=== PATIENT | male | born 1960 | race Caucasian/White ===

== ENCOUNTER 2024-10-17 10:58 | Outpatient (AMB) | payer BC, SELFPAY ==
--- NOTE | 2024-10-17 11:04 | PD.ORTHCLVIS ---
Vital signs 10/17/24 11:06 Height 1.85 m Height Method Stated Weight 132.931 kg Weight Measurement Method Standing Scale BMI 38.6 BP 107/75 Blood Pressure Source Automatic Cuff Blood Pressure Location Right Upper Arm Position Sitting Respiration 19 Pulse 68 Pulse Source Monitor Temp 96.8 F Temp Source Temporal Artery Scan Pulse Oximetry (%) 95 Oxygen Delivery Method Room Air Med/Allergies Allergies & Medications Allergies Fish Containing Products Allergy (Severe, Verified 10/17/24 11:07) sob Penicillins Allergy (Intermediate, Verified 10/17/24 11:07) RASH Medication Reconciliation allopurinol 300 mg tablet 300 mg PO QDAY 03/19/24 [History Confirmed 10/17/24] atorvastatin 10 mg tablet 10 mg PO QDAY 03/19/24 [History Confirmed 10/17/24] benazepril 20 mg-hydrochlorothiazide 12.5 mg tablet 1 tab PO QDAY 03/19/24 [History Confirmed 10/17/24] diclofenac potassium 50 mg tablet 50 mg PO TID PRN Pain 03/19/24 [History Confirmed 10/17/24] metoprolol succinate 50 mg tablet,extended release 24 hr 50 mg PO QDAY 03/19/24 [History Confirmed 10/17/24] Exam Exam Patient is in no acute distress and is cooperative with the examination today. Breathing is nonlabored. In no respiratory distress. Patient has no paraspinal tenderness. Spinal deformity [cannot] be appreciated. The gait of the patient is [nonantalgic] Bilateral extremities were evaluated and demonstrates sensation intact to light touch. Palpable pedal pulses are present. No significant edema is present. Bilateral knees were examined and the patient has full strength and range of motion.. The right hip was examined. Patient was able to flex to 90 degrees, adduct to 30 degrees, abduct to 40 degrees, internally rotate to 20 degrees, and externally rotate to 20 degrees. Patient has a negative logroll. Stinchfield is negative. The patient is nontender diffusely to touch. The left hip was examined. Patient was able to flex to 70 degrees, adduct to 15 degrees, abduct to 20 degrees, internally rotate to 5 degrees, and externally rotate to 10 degrees. Patient has a positive logroll. X-rays demonstrate significant left hip arthritis with complete obliteration of the left hip joint space. Assessment and Plan Problem List (1) Arthritis of left hip: Status: Acute Plan: Patient is a 63-year-old male with left hip arthritis of significant severity. He is morbidly obese and has gained 50 pounds recently. His weight is all centrally located and it actually is big enough where he will not sit on the table in a lateral decubitus position. I would not recommend going anterior as he has quite a bit of a belly. We discussed with him that I would would need him to lose some weight so that he can sit on the table. Office Procedures GNS Level of Care Nursing/Assessment Patient Status: Established Patient Nursing Assessment/Reassesment: Medication Reconciliation, Update PMH in EMR and Vital Signs Coordination of Care: Complex Care and Chronic Disease 1-5, Education Complex Pt/Fam, Consent,records obtained, informed consent, Results/Orders obtained and Staff clarify orders Established Patient Charge Established Patient Point Assignment: 95 Established Patient Point Charge: Level 3 (80-115) MA Intake Visit Data Collection New Patient or Established: Established Patient (seen at [facility] within 3 years) Reason for Visit:: F/U HIP INJECTION Seen by Clinical Staff ONLY (RN/MA): No Verbal consent obtained for Telemed visit?: No [employer]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 PCP or OBGYN visit in last 3 months: Yes Hx Now: No Do You Feel Safe at Home: Yes Authorities Contacted: N/A Questionairres Past Medical History Past Medical History Have you ever been diagnosed with any of the following: Neurological Problems Seizures: No Cardiology Problems Hypercholesterolemia: Yes Congestive Heart Failure: No Hypertension: Yes Respiratory Problems Chronic Obstructive Pulmonary Disease (COPD): No Smoking: No Smoking Cessation Counseling: No Smoking Exposure: No Tobacco Use: No Clubbing: No Genital/Urinary Problems Renal Disease: No Kidney Stones: Yes Endocrine Problems Diabetes Mellitus Type 1: No Diabetes Mellitus Type 2: No Blood Problems Anemia: No Other Problems Down Syndrome: No Falls: No Blood Transfusions: No Anesthesia Reactions: No Chicken Pox: Yes Measles: No Mumps: No Subjective Visit Visit for: follow up visit and hip Immunization / Flu Flu Vaccine in the Last 12 Months: No Flu Vaccine Exclusion Criteria: No Exclusion Criteria History of Present Illness Chief complaint: HIP INJECTION FOLLOW UP Patient is a pleasant 63-year-old male with severe left hip arthritis. We previously did a cortisone injection and did not help much. He has gained about 50 pounds within the last year. Unfortunately all his weight is centrally. He actually will not fit on the table Given where his weight is currently Pain Pain level (0-10): 8 Pain duration: COMES AND GOES Pain location: groin Pain quality: sharp Ambulatory data Ambulatory device: none Treatments Improvement with previous injections: No Improvement with PT: No Improvement with NSAIDS: no Review of Systems Review of Systems: All systems negative unless otherwise noted in HPI.
[2024-10-17 11:06] VITALS: BP 107/75; PULSE 68; RESP 19; TEMP 36; O2SAT 95; BMI 38.6
== END 2024-10-17 11:12 | disposition home or self-care (01) ==
LOC: HODSRG 10:58
PROVIDERS: PCP Internal Medicine; Referring Provider Internal Medicine; Supervising Provider Orthopaedic Surgery Adult Reconstructive Orthopaedic Surgery; Visit Provider Orthopaedic Surgery Adult Reconstructive Orthopaedic Surgery
DX: M16.12 Unilateral primary osteoarthritis, left hip (principal); E66.01 Morbid (severe) obesity due to excess calories; Z68.38 Body mass index [BMI] 38.0-38.9, adult; I10 Essential (primary) hypertension; E78.00 Pure hypercholesterolemia, unspecified
CPT/HCPCS: 99213; G0463